=== PATIENT | male | born 1930 | race Hispanic/Latino ===

== ENCOUNTER 2018-03-22 13:50 | Inpatient (IN) | payer MEDICARE, OTHER ==
[~2018-03-22 13:50] MED LIST: ISOVUE-370 76%-LOCM 1 ML ONE
[2018-03-22 15:12] LABS: #Eosinphils 0.1 thou/uL (0.0-0.7); #Lymphocytes 1.1 thou/uL (1.20-3.40); #Monocytes 0.5 thou/uL (0.11-0.59); #Neutrophils 5.7 thou/uL (1.40-6.50); %Basophils 0.4 % (0.0-1.0); %Eosinophils 1.1 % (0.0-10.0); %Lymphocytes 14.6 % (21.0-51.0); %Monocytes 7.3 % (0.0-10.0); %Neutrophils 76.7 % (42.0-75.0); Hemoglobin 13.8 g/dL (14.0-18.0); Mean Corpuscular HGB CONC 34.8 g/dL (32.0-36.0); Mean Corpuscular Hemoglobin 31.4 pg (27.0-31.0); Mean Corpuscular Volume 90.3 fL (78.0-98.0); Mean Platelet Volume 9.2 fL (7.4-10.4); Platelet Count 163 thou/uL (130-400); RBC Distribution Width 12.3 % (11.5-14.5); Red Blood Cell (RBC) Count 4.39 mill/uL (4.70-6.10); White Blood Cell (WBC) Count 7.4 thou/uL (4.8-10.8)
[2018-03-22 15:33] LABS: ALT (SGPT) 160 U/L (8-55); AST (SGOT) 80 U/L (5-34); Alkaline Phosphatase 509 U/L (40-150); Anion Gap 10 mmol/L (10-20); BUN (Urea Nitrogen) 20 mg/dL (8.4-25.7); Calc. Creatinine Clearance 0 mL/min (70-130); Carbon Dioxide 26 mmol/L (23-31); Chloride 108 mmol/L (98-107); Estimated GFR-MDRD 64; Globulin 2.6 g/dL (2.4-3.5); Glucose 203 mg/dL (83-110); Protein, Total 6.6 g/dL (5.8-8.1); Sodium 141 mmol/L (136-145)
[2018-03-22 17:32] LABS: Bilirubin Large (Negative); Blood, Urine Negative (Negative); Clarity CLEAR (Clear); Glucose, Urine (Dipstick) >=1000 mg/dL (Negative); Leukocyte Moderate (Negative); Protein, Urine (Dipstick) 30 mg/dL (Neg-Trace); Specific Gravity, Urine 1.034 (1.002-1.036)
[2018-03-22 17:34] LABS: Bacteria/HPF None Seen HPF (None Seen); Pathc Cast-AUWi Flag 1.88 (0-2.49); Squamous Epithelial 0-3 HPF (0-3); WBC/HPF 21-50 HPF (0-3)
[2018-03-22 17:51] LABS: Nitrite Unable to Interpret (Negative)
[2018-03-22 17:52] LABS: Hyaline Casts/LPF 0-3 HYALINE CAST LPF (0-3 Hyaline); Renal Epithelial 0-3 HPF (0-3); Transitional Epithelial 0-3 HPF (0-3)
--- NOTE | 2018-03-22 18:21 | ULT ---
RIGHT UPPER QUADRANT ABDOMINAL ULTRASOUND: Date: 03/22/18 HISTORY: New onset jaundice. Right upper quadrant abdominal pain. TECHNIQUE: Multiplanar Seymour scale and color Doppler images obtained in a right upper quadrant abdominal ultrasou nd. FINDINGS: The liver is normal in echogenicity without focal lesions or intrahepatic ductal dilatation. Dependen t sludge is seen in the gallbladder without shadowing stones in the gallbladder. The gallbladder wall is upper limits of normal in thickness measuring 3.0 mm. No pericholecystic fluid is seen. The commo n bile duct is enlarged, measuring 9.0 mm. The pancreas could not be visualized. The right kidney is normal in echogenicity without hydronephros is or calculus and measures 8.3 cm in length. IMPRESSION: 1. Gallbladder sludge. 2. Nonspecific enlargement of the common bile duct. POS: [facility]
[2018-03-22] MEDS ORDERED: Potassium Chloride 20 MEQ TAB ONE (19:13)
[2018-03-22] MEDS ORDERED: cefTRIAXone\\ROCEPHIN 2 GM VIAL ONE (19:13)
[2018-03-22 19:18] LABS: INR-International Normal Ratio 1.1; Prothrombin Time 14.5 SEC (12.0-14.7)
--- NOTE | 2018-03-22 19:31 | CT ---
CT ABDOMEN AND PELVIS WITH CONTRAST: HISTORY: New onset jaundice. COMPARISON: Gallbladder ultrasound from 03/22/2018 TECHNIQUE: Multiple contiguous axial images were obtained in a CT of the abdomen and pelvis with contrast. Yvrose nal reformats were performed. FINDINGS: There is central intrahepatic biliary dilatation. There are scattered subcentimeter hypodensities in the liver, which are too small to definitely characterize. The gallbladder is distended. The commo n bile duct is normal in size, measuring 6 mm. There is a 1.7 cm cyst in the left kidney. Hyperplasia of the right adrenal gland is seen. The righ t kidney, left adrenal gland, spleen, and pancreas are unremarkable. No mass is seen in the head of the pancreas. There is a moderate hiatal hernia. The prostate is enlarged. A few scattered diverticula are seen i n the colon. The small bowel and appendix are unremarkable. No abdominal or pelvic lymphadenopathy is seen. Atherosclerotic calcifications are seen in the aort a. Degenerative changes are seen in the spine. The visualized inferior thorax and abdominal wall soft t issues are unremarkable. IMPRESSION: 1. Gallbladder distention. 2. Intrahepatic biliary dilatation is nonspecific. 3. No mass is seen in the pancreatic head. 4. Left renal cyst. 5. Diverticulosis. POS: [facility]
[2018-03-22] MEDS ORDERED: Ondansetron HCl/PF 4 MG/2 ML Vial IVP PRN (20:01)
[2018-03-22] MEDS ORDERED: Pepto Bismol Chew TAB PO PRN (20:01)
[2018-03-22] MEDS ORDERED: Guaifenesin DM 100-10/5 ML UDCUP PO PRN (20:01)
[2018-03-22] MEDS ORDERED: Senokot 8.6 MG TAB PO PRN (20:01)
[2018-03-22] MEDS ORDERED: Bisacodyl 5 MG TAB PO PRN (20:01)
[2018-03-22] MEDS ORDERED: Enoxaparin Sodium 40 MG/0.4 ML SYRINGE SC SCH (21:00)
[2018-03-22] MEDS: Sodium Chloride 0.9% 1,000 ML IV SCH (23:04)
[2018-03-22] MEDS: Famotidine/PF 20 mg/2ml Vial SLOW IVP SCH (23:04)
--- NOTE | 2018-03-22 23:49 | HP ---
CHIEF COMPLAINT: New onset jaundice. HISTORIAN. The patient's daughter, reliable. HISTORY OF PRESENT ILLNESS: This is an 87-year-old male with past medical history of dementia, shamir cardia, prostate cancer status post radiation, hyperlipidemia, hypertension presenting with new onset jaundice, which started the day prior to this admission. Per daughter, the patient has been having some diarrhea since and did notice that the patient started to become very yellow on the mor lulu of the day before this admission. Per daughter, the patient does not have any complaints. She is not complaining of any pain, any nausea or vomiting. The patient feels well. The patient is at h is baseline. REVIEW OF SYSTEMS: Positive for dementia, Alzheimer's type, and jaundice, otherwise as documented in HPI, all systems were reviewed and are negative. PAST MEDICAL HISTORY: Refer to [facility]. PAST SURGICAL HISTORY: Cataract surgery bilaterally, orthopedic surgery of right elbow and prostatec josefa. PSYCHIATRIC HISTORY: The patient has Alzheimer dementia. FAMILY HISTORY: Reviewed and noncontributory to this visit. SOCIAL HISTORY: The patient denies any alcohol use, denies any drug use. Denies any smoking history . ALLERGIES: SULFAS. MEDICATIONS: 1. Procardia 30 mg. 2. Aricept 20 mg. 3. Simvastatin 20 mg. 4. Hytrin 10 mg. 5. Aspirin 81 mg. PHYSICAL EXAMINATION: VITAL SIGNS: Blood pressure 131/68, pulse 61, respiratory rate 18, temperature 98.1, O2 sat is 96 on room air. GENERAL APPEARANCE: The patient is lying in bed, appears not jaundiced, is able to speak in full sen tences. The patient is demented. HEENT: Normocephalic, atraumatic. Pupils are equally round and reactive to light. Extraocular move ments are intact. Patient has scleral icterus. Mucous membranes are moist. NECK: Supple, no JVD, no tracheal deviation. LUNGS: Clear to auscultation bilaterally. No wheezing, no rales, no rhonchi is appreciated. CARDIOVASCULAR: Positive S1, S2, regular rate and rhythm. No murmurs, no gallops, no rubs appreciat ed. ABDOMEN: Obese abdomen, nontender, nondistended. No palpable masses. No peritoneal signs. The pat ient has yellowing of the skin of the abdomen. EXTREMITIES: Upper extremity and lower extremity, 5/5 upper extremity strength and 5/5 lower extremi ty strength with good pulses of the upper and lower extremities bilaterally. NEUROLOGIC: Cranial nerves II-XII grossly intact. No focal neurologic deficits noted. SKIN: Patient is jaundiced all over. Dry, warm and intact. PSYCHIATRIC: The patient is demented, alert and oriented x1. EMERGENCY DEPARTMENT COURSE: The patient received Rocephin 2 grams. The patient received potassium chloride 40 mEq. IMAGING: Ultrasound of the abdomen showed gallbladder sludge, nonspecific enlargement of the common bile duct. Abdomen and pelvis CT showed gallbladder distention, intrahepatic biliary dilatation is n onspecific. No masses seen in the pancreatic head. Left renal cyst, there is diverticulosis. LABORATORY DATA: WBC 7.4, hemoglobin is 13.8, hematocrit is 39.6, RDW is 12.3, platelets 163, neutro phils 76.7%. Sodium 141, potassium is 3.0, chloride is 108, carbon dioxide is 26, anion gap of 10, B UN 20, creatinine 1.09, glucose 203. Total bilirubin is 7.0, AST 80, ALT 160, alkaline phosphatase i s 509. Urine: The patient had large urine bilirubin, moderate leukoesterase. ASSESSMENT AND PLAN: This is an 87-year-old male presenting with: 1. New onset painless jaundice: At this point, right upper quadrant ultrasound has been done, which showed some gallbladder sludge, nonspecific common bile duct distention. CT of the abdomen and pelv is also showed that there is a nonspecific gallbladder dilatation and at this point, patient's alkali ne phosphatase is very high and even though no stone has been seen, the common bile duct at this poin t, we will do MRCP to take a good look at the biliary tree. We have consulted GI. We will follow up with GI's recommendations. We will continue patient on antibiotics and will follow up with morning labs. 2. Electrolyte abnormality: At this point, we will replete all electrolyte abnormalities. 3. Transaminitis: Etiology unclear at this time, but there seemed to be some sludge in the gallblad ab and there is common bile duct dilatation, which is very nonspecific. At this point, we will get MRCP to evaluate the biliary tree. We have GI on consult. We will continue to follow up with [facility] labs and continue to work the patient up. 4. Asymptomatic urinary tract infection. At this point, the patient is already on antibiotics, so t hat we will treat the patient if patient do indeed have a UTI, but the patient does not have any symp toms. 5. History of hypertension. We will continue to monitor the patient and we will treat patient's hyp ertension as needed. 6. Hyperlipidemia. We will continue patient on current management. 7. Alzheimer dementia. We will continue patient on current management and we will start patient on p.o. medications from home. 8. Deep venous thrombosis and GI prophylaxis.
[2018-03-23] MEDS: Piperacillin/Tazobactam 3.375 GM in Sodium Chloride 0.9% 100 ML IVPB SCH ×5 (00:33→23:46)
[2018-03-23 04:49] VITALS: BMI 25.0
[2018-03-23 05:45] LABS: #Eosinphils 0.2 thou/uL (0.0-0.7); #Lymphocytes 1.3 thou/uL (1.20-3.40); #Monocytes 0.5 thou/uL (0.11-0.59); #Neutrophils 4.2 thou/uL (1.40-6.50); %Basophils 0.8 % (0.0-1.0); %Eosinophils 2.5 % (0.0-10.0); %Lymphocytes 20.9 % (21.0-51.0); %Monocytes 8.1 % (0.0-10.0); %Neutrophils 67.7 % (42.0-75.0); Hemoglobin 12.4 g/dL (14.0-18.0); Mean Corpuscular HGB CONC 35.2 g/dL (32.0-36.0); Mean Corpuscular Hemoglobin 31.7 pg (27.0-31.0); Mean Corpuscular Volume 90.1 fL (78.0-98.0); Mean Platelet Volume 9.7 fL (7.4-10.4); Platelet Count 153 thou/uL (130-400); RBC Distribution Width 12.2 % (11.5-14.5); White Blood Cell (WBC) Count 6.2 thou/uL (4.8-10.8)
[2018-03-23 05:52] LABS: Anion Gap 12 mmol/L (10-20); BUN (Urea Nitrogen) 14 mg/dL (8.4-25.7); Calc. Creatinine Clearance 66 mL/min (70-130); Calcium 8.8 mg/dL (7.8-10.44); Carbon Dioxide 23 mmol/L (23-31); Chloride 112 mmol/L (98-107); Estimated GFR-MDRD 86; Glucose 112 mg/dL (83-110); Sodium 144 mmol/L (136-145)
[2018-03-23 05:55] LABS: Potassium 2.7 mmol/L (3.5-5.1)
[2018-03-23] MEDS: Potassium Chloride 20 MEQ in Premix Bag 1 BAG IVPB SCH ×3 (07:00→20:26)
[2018-03-23] MEDS ORDERED: hydrALAZINE 20 MG/ML VIAL SLOW IVP PRN (10:51)
--- NOTE | 2018-03-23 10:53 | PDOC.PN ---
- Subjective Encounter Start Date: 03/23/18 Encounter Start Time: 10:52 Mr. Geller was seen today in follow-up of Jaundice, and cholestasis. He does not hve any complaints. He denies abdominal pain or nausea. - Objective Resuscitation Status: Resuscitation Status DNR:Do Not Resuscitate MAR Reviewed: Yes Vital Signs & Weight: Weight Weight 164 lb 15.903 oz Result Diagrams: 03/23/18 05:01 03/23/18 05:01 Phys Exam - Physical Examination HEENT: PERRLA, sclera anicteric Respiratory: no wheezing, no rales, no rhonchi, clear to auscultation bilateral Cardiovascular: RRR, no significant murmur, no rub no gallop Gastrointestinal: soft, non-tender, no distention, positive bowel sounds Musculoskeletal: no edema Skin: normal turgor Dx/Plan (1) Acute cholestatic jaundice syndrome Code(s): K83.8 - OTHER SPECIFIED DISEASES OF BILIARY TRACT Status: Acute (2) Hypokalemia Code(s): E87.6 - HYPOKALEMIA Status: Acute (3) UTI (urinary tract infection) Status: Acute (4) Dementia Code(s): F03.90 - UNSPECIFIED DEMENTIA WITHOUT BEHAVIORAL DISTURBANCE Status: Chronic (5) HTN (hypertension) Code(s): I10 - ESSENTIAL (PRIMARY) HYPERTENSION Status: Chronic - Plan * Cholestatic Juandice- MRCP has been ordered, and GI has been consulted * HTN- blood pressure is elevated, but he is NPO- will add Hydralazine as needed * Hypokalemia- replace * UTI vs. Asymptomatic Bacteriuria- continue Zosyn * Dementia- stable advanced- he is oriented only to person, and at times does not recognize family.
[2018-03-23] MEDS: Famotidine/PF 20 mg/2ml Vial SLOW IVP SCH ×2 (11:38→20:24)
--- NOTE | 2018-03-23 11:45 | CON ---
DATE OF CONSULTATION: 03/23/2018 REFERRING PHYSICIAN: Dr. Eren Llanes, [facility] [place] Hospitalist. REASON FOR CONSULTATION: Abnormal LFTs, painless jaundice. HISTORY OF PRESENT ILLNESS: Mr. Alvin Geller is a very pleasant 87-year-old male bro ught to the hospital by his family because of painless jaundice. The patient does see Dr. Ganga cisneros who is his primary care doctor. The patient's family noticed him to be jaundiced this past Sun day. He was seen by Dr. Mcdowell and was referred to the ER. In the ER he was found to have abnormal LFTs and also subsequent evaluation included abdominal sonogram and CAT scan showed dilation of the intrahepatic ducts. Surprisingly, the distal common bile is nondilated. There is no definite pancre atic mass seen. The patient has good appetite. There is nausea or vomiting. No abdominal pain. Ur ine is yellowish in color. He has good appetite and eating well, but for the painless jaundice and s ome itching over the last couple of days, he has no GI symptoms. He has not seen a gastroenterologis t in the past. His bowel movements are regular. No hematochezia, no melena. He has no other known history. ALLERGIES: SULFA. MEDICAL ILLNESSES: 1. Hypertension. 2. Hyperlipidemia. 3. Dementia. 4. History of slow heart rate, he was seen by Dr. Miller in the past. MEDICATIONS: 1. Procardia 30 once a day. 2. Aricept 20 once a day. 3. Simvastatin 20 once a day. 4. ____ 10 mg once a day. 5. Aspirin 81 mg a day. SURGERIES: 1. Cataract surgery, both sides. 2. Right elbow surgery for injury. 3. Prostatectomy for prostate cancer by Dr. Wilber Vallejo 5 years ago. No other surgeries. FAMILY HISTORY: There is no family history of stroke, heart disease or cancer. REVIEW OF SYSTEMS: Limited to the fact that he has dementia and he is forgetful. However, denies any specific symptom. CONSTITUTIONAL: No history of fever, no weight loss. He does ambulate with a cane. RESPIRATORY: No history of chronic cough, hemoptysis or dyspnea. CARDIOVASCULAR: No chest pain, no palpitation, no orthopnea or PND. GASTROINTESTINAL: Unremarkable. GENITOURINARY: Unremarkable. PHYSICAL EXAMINATION: GENERAL: Revealed a very pleasant, elderly male who appears comfortable. He is awake and communicative. However, most of the history was obtained from the patient's daughter, Kirsten, who is in the room. He is jaundiced. VITAL SIGNS: He is afebrile. Pulse is 70. At the present time, blood pressure is 161/66. NECK: Supple. No adenitis or thyromegaly noted. CARDIOVASCULAR: First and second heart sounds normal. He has a faint systolic murmur. LUNGS: Clear to auscultation. ABDOMEN: Soft. Abdomen is nondistended. Abdomen is nontender. There is no organomegaly or masses. Bowel sounds normal. EXTREMITIES: No edema. LABORATORY DATA: From today, WBC 6200, hemoglobin 12.4, hematocrit 30.1, MCV 90.1, platelet count 15 8,000, polymorphs 67, lymphocytes 20, monocytes 8. Serum chemistries; potassium 2.7 today, chloride 112, bicarbonate 23. Sodium 144, BUN is 14, creatinine 0.84, calcium 8.8, bilirubin 8.7, direct david irubin 4.4, AST 80, ALT 160, alkaline phosphatase 519. An abdominal sonogram done shows dilation of the intrahepatic ducts and gallbladder sludge. The comm on bile duct measures 9 mm. An abdominal CAT scan done shows again no pancreatic mass, dilation of t he intrahepatic ducts. The common bile duct, CAT scan shows less than 6 mm. CLINICAL IMPRESSION: 1. This is an 87-year-old male with painless jaundice. There is a possibility of mal ignancy. Abdominal sonogram CAT scan showed no gallstones. His laboratory shows evidence of cholest asis, alkaline phosphatase of 519, bilirubin 7 mg. AST, ALT 116, AST 80. 2. Hypertension. 3. Hyperlipidemia. 4. Dementia. 5. Prostate cancer, status post prostatectomy. 6. Hypokalemia. RECOMMENDATIONS: 1. Correction of hypokalemia. 2. Diet as tolerated. 3. We will plan for ERCP tomorrow. 4. I did meet Kirsten, his daughter, and explained about the procedure in detail. The risks like pancr eatitis, perforation, sepsis and bleeding explained. The family fully understood the procedure and a greeable for the procedure. I will plan for ERCP tomorrow. In the meantime, would recommend correct ion of hypokalemia before the surgical procedure.
[2018-03-23] MEDS: Potassium Chloride 20 MEQ TAB PO SCH (17:57)
[2018-03-23] MEDS: Sodium Chloride 0.9% 1,000 ML IV SCH ×2 (17:57→20:25)
[2018-03-24 05:31] LABS: Anion Gap 14 mmol/L (10-20); BUN (Urea Nitrogen) 14 mg/dL (8.4-25.7); Calc. Creatinine Clearance 67 mL/min (70-130); Calcium 8.7 mg/dL (7.8-10.44); Carbon Dioxide 20 mmol/L (23-31); Chloride 111 mmol/L (98-107); Estimated GFR-MDRD 89; Glucose 130 mg/dL (83-110); Sodium 142 mmol/L (136-145)
[2018-03-24] MEDS: Famotidine/PF 20 mg/2ml Vial SLOW IVP SCH ×2 (07:55→21:57)
[2018-03-24] MEDS: Piperacillin/Tazobactam 3.375 GM in Sodium Chloride 0.9% 100 ML IVPB SCH ×3 (08:12→21:56)
[2018-03-24] MEDS: Potassium Chloride 20 MEQ TAB PO SCH ×2 (08:15→17:16)
[2018-03-24] MEDS ORDERED: Indomethacin 50 MG SUPP ONE (11:31)
[2018-03-24] MEDS ORDERED: Iothalamate Meglumine 60% 50 ML VIAL FS ONE ×2 (11:31→13:43)
[2018-03-24] MEDS ORDERED: Fentanyl 100 MCG/2 ML VIAL ONE (11:53)
--- NOTE | 2018-03-24 13:45 | RAD ---
ERCP: Date: 03-24-18 History: Enlarged common bile duct. FINDINGS/IMPRESSION: Three intraoperative fluoroscopic images of the right upper quadrant are submitted from ERCP. Images demonstrate accumulation of the common duct with opacification of the common duct and intrahepatic bi le duct which do appear mildly dilated on this exam. The final image demonstrates a stent within the common duct with distal portion of the stent in the expected location of a loop of bowel, although co ntrast in the small bowel is not visualized. Correlation with intraoperative findings is recommended. POS: [facility]
[2018-03-24] MEDS ORDERED: Promethazine HCl 25 MG/ML VIAL IM PRN (13:58)
[2018-03-24] MEDS ORDERED: Ondansetron HCl/PF 4 MG/2 ML Vial IVP PRN (13:58)
[2018-03-24] MEDS ORDERED: Promethazine HCl 25 MG/ML VIAL SLOW IVP PRN (13:58)
[2018-03-24] MEDS ORDERED: Magnesium 2 GM/NS 0.9% 100 ML 2 GM in Premix Bag 1 BAG IVPB SCH (17:15)
--- NOTE | 2018-03-24 17:38 | PDOC.PN ---
- Subjective Encounter Start Date: 03/24/18 Encounter Start Time: 17:37 Mr. Geller was seen today in follow-up of painless juandice. He is a bit drowsy, but does not have any complaints. - Objective Resuscitation Status: Resuscitation Status DNR:Do Not Resuscitate MAR Reviewed: Yes Vital Signs & Weight: Vital Signs (12 hours) Temp Pulse Resp BP BP Pulse Ox 03/24/18 15:37 56 L 220/86 H 03/24/18 08:23 98.4 F 48 L 16 174/73 H 97 Weight Weight 164 lb 15.903 oz I&O: 03/23/18 03/24/18 03/25/18 06:59 06:59 06:59 Intake Total 1500 Balance 1500 Result Diagrams: 03/23/18 05:01 03/24/18 04:41 Phys Exam - Physical Examination HEENT: PERRLA Icteric sclera Respiratory: no wheezing, no rales, no rhonchi, clear to auscultation bilateral Cardiovascular: RRR, no significant murmur, no rub Gastrointestinal: soft, non-tender, no distention, positive bowel sounds Musculoskeletal: no edema Dx/Plan (1) Acute cholestatic jaundice syndrome Code(s): K83.8 - OTHER SPECIFIED DISEASES OF BILIARY TRACT Status: Acute (2) Hypokalemia Code(s): E87.6 - HYPOKALEMIA Status: Acute (3) UTI (urinary tract infection) Status: Acute (4) Dementia Code(s): F03.90 - UNSPECIFIED DEMENTIA WITHOUT BEHAVIORAL DISTURBANCE Status: Chronic (5) HTN (hypertension) Code(s): I10 - ESSENTIAL (PRIMARY) HYPERTENSION Status: Chronic (6) Hypomagnesemia Code(s): E83.42 - HYPOMAGNESEMIA Status: Acute - Plan * Acute cholestatic heath- Patient had ERCP, removal of common duct stones, and placement of a STENT * Await further recommendations from Gastroenterology * HTN- blood pressure is not controlled- will re-start Lisinopril as directed * Hypokalemia- replace * Hypomagnesemia- will give IV Magnesium * Dementia- re-start Aricept .
[2018-03-24] MEDS ORDERED: Atorvastatin Calcium 10 MG TAB PO SCH (21:00)
--- NOTE | 2018-03-24 21:33 | PRG ---
DATE OF SERVICE: 03/24/2018 HISTORY OF PRESENT ILLNESS: Alvin Geller is an 87-year-old male hospitalized with pa inless jaundice. The liver function tests are cholestatic. An abdominal sonogram showed some dilati on of the common bile duct. No definite pancreatic mass seen. An ERCP and revealed no papillary abn ormality. There is no new pancreatic or abnormal mass seen in the duodenum. He underwent ERCP, chris pb of common bile duct stone and had a stent placement. He is on clear liquid diet. He appears brittney y comfortable. Denies abdominal pain and nausea. He is tolerating clear liquid diet. OBJECTIVE: VITAL SIGNS: Stable. Pulse is 58, blood pressure is 155/70. Afebrile. CARDIOVASCULAR: S1 and S2. LUNGS: Within normal limits. ABDOMEN: Soft to palpate. ABDOMEN: Nontender. No murmur. RECOMMENDATION: 1. Clear liquid diet tonight. 2. Advance to a regular diet tomorrow. If he has no symptoms, no abdominal pain or any other proble m, may consider discharge home tomorrow.
[2018-03-25 05:27] LABS: ALT (SGPT) 168 U/L (8-55); AST (SGOT) 104 U/L (5-34); Albumin 3.5 g/dL (3.4-4.8); Alkaline Phosphatase 419 U/L (40-150); Bilirubin, Direct 2.8 mg/dL (0.1-0.3); Bilirubin, Total 4.9 mg/dL (0.2-1.2); Protein, Total 5.8 g/dL (5.8-8.1)
[2018-03-25] MEDS ORDERED: hydrALAZINE 10 MG TAB PO PRN (06:16)
[2018-03-25] MEDS: Piperacillin/Tazobactam 3.375 GM in Sodium Chloride 0.9% 100 ML IVPB SCH ×3 (06:17→15:27)
[2018-03-25] MEDS: Potassium Chloride 20 MEQ TAB PO SCH (08:36)
[2018-03-25] MEDS: Famotidine/PF 20 mg/2ml Vial SLOW IVP SCH (08:37)
[2018-03-25] MEDS ORDERED: Donepezil HCl 10 MG TAB PO SCH (09:00)
[2018-03-25] MEDS ORDERED: Multivit, Therapeutic 1 TAB PO SCH (09:00)
[2018-03-25] MEDS ORDERED: Terazosin HCl 5 MG CAP PO SCH (09:00)
[2018-03-25] MEDS ORDERED: Amlodipine 5 MG TAB PO PRN (09:00)
--- NOTE | 2018-03-25 14:53 | PDOC.PN ---
- Subjective Encounter Start Date: 03/25/18 Encounter Start Time: 14:50 Mr. Geller was seen today in follow-up. He is a bit confused this afternoon. He does not have any specific complaints. - Objective Resuscitation Status: Resuscitation Status DNR:Do Not Resuscitate MAR Reviewed: Yes Vital Signs & Weight: Vital Signs (12 hours) Temp Pulse Resp BP BP BP Pulse Ox 03/25/18 10:57 97.5 F L 78 18 78/34 L 94 L 03/25/18 07:31 98.6 F 56 L 18 151/60 H 94 L 03/25/18 06:22 56 L 180/66 H 03/25/18 06:11 97.4 F L 56 L 14 180/66 H 97 Weight Weight 164 lb 15.903 oz I&O: 03/24/18 03/25/18 03/26/18 06:59 06:59 06:59 Intake Total 1500 1630 Balance 1500 1630 Result Diagrams: 03/23/18 05:01 03/24/18 04:41 Phys Exam - Physical Examination HEENT: PERRLA Respiratory: no wheezing, no rales, no rhonchi, clear to auscultation bilateral Cardiovascular: RRR, no significant murmur, no rub Gastrointestinal: soft, non-tender, no distention, positive bowel sounds Musculoskeletal: no edema Dx/Plan (1) Acute cholestatic jaundice syndrome Code(s): K83.8 - OTHER SPECIFIED DISEASES OF BILIARY TRACT Status: Acute (2) Hypokalemia Code(s): E87.6 - HYPOKALEMIA Status: Acute (3) UTI (urinary tract infection) Status: Acute (4) Dementia Code(s): F03.90 - UNSPECIFIED DEMENTIA WITHOUT BEHAVIORAL DISTURBANCE Status: Chronic (5) HTN (hypertension) Code(s): I10 - ESSENTIAL (PRIMARY) HYPERTENSION Status: Chronic (6) Hypomagnesemia Code(s): E83.42 - HYPOMAGNESEMIA Status: Acute - Plan * Obstructive Juandice- his bilirubin is trending down * He has not had any abdominal pain or fever overnight * He is stable for discharge home.
[2018-03-25 14:58] VITALS: BP 129/58; TEMP 97.9
[2018-03-25] MEDS: Sodium Chloride 0.9% 1,000 ML IV SCH (15:27)
--- NOTE | 2018-03-25 17:29 | OP ---
OPERATIVE PROCEDURES: 1. Endoscopic retrograde cholangiopancreatography with papillotomy. 2. Balloon sweep of the bile duct with common bile duct stone extraction and sludge. 3. Status post placement of a biliary stent size 9 x 11. PREOPERATIVE DIAGNOSES: 1. Abnormal LFTs. 2. Obstructive jaundice as she has dilation of the common bile duct, but no pancreatic mass seen. POSTOPERATIVE DIAGNOSES: 1. Dilated common bile duct with filling defects in the distal CBD. 2. The papilla appeared normal and no papillary mass seen. 3. The pancreatic duct not visualized. PROCEDURE IN DETAIL: The patient was placed on his back and was intubated by Anesthesia Department. The patient was transferred to the fluoroscopy table. The patient was turned on his left lateral po sition and placed on his stomach. A bite block was placed. A [employer] video duodenoscope under direct vision was passed down the oropharynx, past the GE junction, into the stomach and subsequently into the descending duodenum. The papilla was identified. The papilla was actually very flat and small. There is no biliary drainage noted. The papilla was cannulated over a guidewire. The guidewire see ms to be going to the pancreatic duct contrast injected and does appear to show the proximal p ancreatic duct, but did not fill up the entire duct. The papillotome was removed. Subsequently, ove r the guidewire, the CBD was . Injection of the contrast does show dilation of common bile jose cruz t, and also some filling defects in the distal CBD. The quality of the image was very poor. Althoug h numerous adjustments were made to get a better look at the fluoroscopy. The exam was somewhat limi rick. papillotomy at 12 o'clock position. A generous papillotomy to 1.5 cm sized cut was made without any difficulty. Following the papillotomy, there was brisk drainage of bile which was dark black bile and also some sludge came out. The papillotome was changed to a biliary balloon size 9-12 mm. It was inside 12 mm and brought out three times. There were couple of stones extracted and als o dark bile was draining freely with some sludge. Because of the poor quality of the prep related t o place a biliary stent. The papillotome was exchanged to a biliary balloon and on over the guide wi re the duct was sucked three times. The balloon was removed. The catheter was advanced over the kain dewire into the common bile duct and over the catheter biliary stent size 9 x 11 mm placed int o the bile duct and there was good drainage of bile noted. No complications noted. The stomach was decompressed and scope was removed. RECOMMENDATIONS: 1. Clear liquid diet today. 2. Repeat LFTs tomorrow. 3. If he has no untoward side effects from the ERCP, consider discharge home hopefully tomorrow. Th e plan is to bring the patient back in 4 weeks to remove the stent and possibly consider endosonograp hy as an outpatient. This was conveyed to the patient's daughter Kirsten.
--- NOTE | 2018-03-26 02:08 | DIS ---
DATE OF ADMISSION: 03/22/2018 DATE OF DISCHARGE: 03/25/2018 PRIMARY CARE PHYSICIAN: Dr. Ganga Mcdowell. DISCHARGE DIAGNOSES: 1. Acute cholestatic jaundice. 2. Hypokalemia. 3. Dementia. DISCHARGE MEDICATIONS: Include Theragran-M 1 tablet daily, vitamin B12 of 1000 mcg daily, amlodipine 2.5 mg as needed, Hytrin 10 mg daily, simvastatin 20 mg at bedtime, and Aricept 20 mg daily. CODE STATUS: DNR. ALLERGIES: SULFACETAMIDE. PROCEDURES DONE DURING THE ADMISSION: The patient had an abdominal ultrasound, in which there were s ome gallbladder sludge, there were some nonspecific enlargement of the common bile duct. There is a CT scan of the abdomen and pelvis, in which there were some evidence of gallbladder distention, intra biliary dilatation was nonspecific. There was no mass seen at the pancreatic head. There was a left renal cyst and diverticulosis. The patient had an ERCP with stent placement. CODE STATUS: DNR. HOSPITAL COURSE: Mr. Geller is a pleasant 87-year-old gentleman who presented to the emergency room v ia being brought in by family after it was noted that he was jaundiced. He was seen in the ER, and i t was noted that his bilirubin was elevated at 7.0 and that was a total bilirubin. He had an elevate d alkaline phosphatase at 509. CT scan of the abdomen showed some mild gallbladder sludge. He was a lso found to be hypokalemic with a potassium of 2.7. This was replaced. He was originally placed on antibiotics due to concern for urinary tract infection; however, this appears to be more asymptomati c bacteriuria. Stool studies were also done, which were negative for C. difficile, Campylobacter, an d Shiga toxin. He was seen by Gastroenterology and underwent an ERCP. There was a removal of severa l small common duct stones and a stent was placed. He is to follow up with Dr. Mason as instruct ed. After the procedure, there was no fever or abdominal pain. He did have some worsening of his de mentia right at the time of discharge, which hopefully should improve after he is back in more [facility] surroundings. He is therefore discharged home and to have close outpatient followup.
== END 2018-03-25 16:00 | disposition home or self-care (01) | DRG 445 ==
LOC: ERS 13:50 → SURG B 19:16
PROVIDERS: ADMIT Internal Medicine; ATTEND Internal Medicine
PROC: 0F798DZ Dilation of Common Bile Duct with Intraluminal Device, Via Natural or Artificial Opening Endoscopic (ICD-10-PCS; principal; 2018-03-23)
DX: K83.1 Obstruction of bile duct (principal); N39.0 Urinary tract infection, site not specified; G30.9 Alzheimer's disease, unspecified; F02.80 Dementia in other diseases classified elsewhere, unspecified severity, without behavioral disturbance, psychotic disturbance, mood disturbance, and anxiety; Z85.46 Personal history of malignant neoplasm of prostate; Z92.3 Personal history of irradiation; E78.5 Hyperlipidemia, unspecified; I10 Essential (primary) hypertension; Z88.2 Allergy status to sulfonamides; Z79.82 Long term (current) use of aspirin; E87.6 Hypokalemia; Z66 Do not resuscitate; N28.1 Cyst of kidney, acquired; K57.90 Diverticulosis of intestine, part unspecified, without perforation or abscess without bleeding; Z90.79 Acquired absence of other genital organ(s); E83.42 Hypomagnesemia
CPT/HCPCS: 36415; 74177; 74330; 76705; 80048; 80053; 80076; 81003; 81015; 82248; 83010; 83615; 83690; 83735; 85025; 85610; 87040; 87045; 87046; 87086; 87324; 87449; 87899; 96365; A4216; J0360; J0696; J1610; J1650; J2543; J3010; J3475; J3480; J7050; Q9961; S0028

== ENCOUNTER 2018-04-28 06:12 | Day surgery (SDC) | payer MEDICARE, OTHER ==
--- NOTE | 2018-04-27 07:27 | HP ---
SHORT STAY HISTORY AND PHYSICAL DATE OF ADMISSION: 04/29/2018 HISTORY OF PRESENT ILLNESS: This is an 87-year-old [place] male hospitalized with painless jaundice. He had a dilation of common bile duct with no definite pancreatic mass. He had no nausea or vomiting. The patient underwent ERCP with papillotomy and stone extraction. There were multiple stones removed from the bile duct. At the time of the exam was suboptimal as the pictures on the fluoroscopy was not good quality.. The patient underwent a stent placement done because of the multiple gallstones removed. The patient did very well since discharge. His LFTs are back to normal. He has no abdominal pain, nausea or vomiting. The patient comes for the ERCP, stent removal. ALLERGIES: SULFA. MEDICAL ILLNESSES: 1. Hyperlipidemia. 2. Prostate hypertrophy. 3. Mild dementia. PHYSICAL EXAMINATION: GENERAL: Appears comfortable. VITAL SIGNS: Pulse is 70, blood pressure 130/80. HEENT: Conjunctivae clear. CARDIOVASCULAR SYSTEM: First and second heart sounds normal. LUNGS: Clear to auscultation. ABDOMEN: Soft to palpate. No organomegaly. No tenderness. No masses. ADMITTING DIAGNOSES: 1. Obstructive jaundice, painless. 2. Common bile duct stone removal with stent placement. PLAN: ERCP and stent removal. PAVEL
[2018-04-28] MEDS ORDERED: Midazolam HCl 2 mg/2 ml Vial ONE (06:25)
[2018-04-28] MEDS ORDERED: Fentanyl 100 MCG/2 ML VIAL ONE (06:25)
[2018-04-28] MEDS ORDERED: Iothalamate Meglumine 60% 50 ML VIAL FS ONE (07:10)
--- NOTE | 2018-04-28 10:35 | RAD ---
SINGLE VIEW RETROGRADE ERCP: Indication: Abdominal pain. Comparison: 03-24-18 FINDINGS: The submitted image demonstrates removal of a previously seen biliary drain. There is retrograde opac ification of the common bowel duct, hepatic duct, and intrahepatic biliary ducts. No definite focal f illing defect or extravasation is noted. IMPRESSION: 1. No focal filling defect evident. 2. Interval removal of the previously seen biliary drain. POS: [facility]
--- NOTE | 2018-04-28 14:25 | OP ---
DATE OF PROCEDURE: 04/28/2018 PREOPERATIVE DIAGNOSIS: Common bile duct stone, status post biliary stent placement a month ago. POSTOPERATIVE DIAGNOSES: No filling defect seen and the bile duct empties properly, although bile duct could not be completely filled up by almost 60 mL of contrast. He has balloon occlusion of the common bile duct but the contrast keeps leaking out, indicated previous large sphincterotomy. PROCEDURE IN DETAIL: The patient was intubated and was given sedation by Anesthesia Department. The patient was transferred to the fluoroscopy table. The patient was placed on the left lateral position and was turned on his stomach. A bite block was placed. A [email or web address] video duodenoscope under direct vision was passed down the oropharynx, past GE junction, into the stomach. The patient has J shaped stomach. The patient had hernia . The pyloric opening was somewhat difficult to locate, it is almost like he has a volvulus. I was able to get the scope into the descending duodenum and the previously placed bile duct was draining good. The stent was removed with a polypectomy snare. Subsequently, the scope was advanced back into the stomach. 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 Finally , I was able to get to the descending duodenum. There was good bilious drainage noted. The papilla was cannulated over the guidewire into the common bile duct. Injection of the contrast shows duct to be mildly dilated, but no definite filling defect seen; however, the contrast kept leaking out and it was difficult to fill up the common bile duct. For the above reason, a decision was made to do balloon sweep of the bile duct with size 9-12 mm. The balloon was inflated, the contrast was injected. Again, the contrast kept leaking out. The balloon was inflated x3 and the balloon was _brought out easily. There was good emptying of the common bile duct. The stomach was decompressed and the scope removed. DISCHARGE PLAN: This is an 87-year-old male with previous ERCP with papillotomy and stent placement and also stone extraction. The patient underwent EGD and a balloon sweep of the bile duct. There were no stone extractions and also the bile duct emptied very promptly. The patient is being discharged. DISCHARGE INSTRUCTIONS: 1. The patient was advised to call me with abdominal pain, fever, nausea, and vomiting. 2. In the absence of any symptoms, can come back to me in 2 weeks. We will plan to do endosonography in the near future. PAVEL
--- NOTE | 2018-04-29 08:13 | EKG ---
Test Reason : PREOP Blood Pressure : / mmHG Vent. Rate : 049 BPM Atrial Rate : 049 BPM P-R Int : 184 ms QRS Dur : 124 ms QT Int : 532 ms P-R-T Axes : 043 -24 051 degrees QTc Int : 480 ms Sinus bradycardia RSR' or QR pattern in V1 suggests right ventricular conduction delay Left ventricular hypertrophy with QRS widening Cannot rule out Anteroseptal infarct (cited on or before 21-MAY-2004)(Doubtful) Abnormal ECG When compared with ECG of 18-DEC-2016 10:37, Questionable change in initial forces of Anteroseptal leads Confirmed by KANDY BRANDT ([id number]) on 04/29/2018 8:12:29 AM Referred By: JAUN Confirmed By:KANDY BRANDT
== END 2018-04-28 10:45 | disposition home or self-care (01) ==
LOC: SDC 06:12
PROVIDERS: ATTEND Internal Medicine Gastroenterology
PROC: 0FPB8DZ Removal of Intraluminal Device from Hepatobiliary Duct, Via Natural or Artificial Opening Endoscopic (ICD-10-PCS; principal; 2018-04-28)
DX: K83.1 Obstruction of bile duct (principal); K46.9 Unspecified abdominal hernia without obstruction or gangrene; K31.89 Other diseases of stomach and duodenum; E78.5 Hyperlipidemia, unspecified; N40.0 Benign prostatic hyperplasia without lower urinary tract symptoms; F03.90 Unspecified dementia, unspecified severity, without behavioral disturbance, psychotic disturbance, mood disturbance, and anxiety; Z79.899 Other long term (current) drug therapy; Z88.2 Allergy status to sulfonamides; Z98.890 Other specified postprocedural states
CPT/HCPCS: 74330; 93005; 93010; J2250; J3010; Q9961

== ENCOUNTER 2018-06-28 21:30 | Inpatient (IN) | payer MEDICARE, OTHER ==
[2018-06-28 22:14] LABS: #Lymphocytes 0.8 thou/uL (1.20-3.40); #Monocytes 0.6 thou/uL (0.11-0.59); #Neutrophils 9.6 thou/uL (1.40-6.50); %Basophils 0.1 % (0.0-1.0); %Eosinophils 0.3 % (0.0-10.0); %Lymphocytes 6.8 % (21.0-51.0); %Monocytes 5.8 % (0.0-10.0); Hemoglobin 13.2 g/dL (14.0-18.0); Mean Corpuscular Hemoglobin 30.5 pg (27.0-31.0); Mean Corpuscular Volume 89.8 fL (78.0-98.0); Mean Platelet Volume 9.6 fL (7.4-10.4); Platelet Count 105 thou/uL (130-400); RBC Distribution Width 11.6 % (11.5-14.5); Red Blood Cell (RBC) Count 4.34 mill/uL (4.70-6.10)
[2018-06-28 22:19] LABS: ALT (SGPT) 170 U/L (8-55); AST (SGOT) 71 U/L (5-34); Albumin 3.6 g/dL (3.4-4.8); Alkaline Phosphatase 173 U/L (40-150); Anion Gap 12 mmol/L (10-20); BUN (Urea Nitrogen) 36 mg/dL (8.4-25.7); Bilirubin, Total 1.5 mg/dL (0.2-1.2); CK (CPK) 187 U/L (30-200); Calc. Creatinine Clearance 0 mL/min (70-130); Calcium 9.2 mg/dL (7.8-10.44); Carbon Dioxide 25 mmol/L (23-31); Chloride 100 mmol/L (98-107); Estimated GFR-MDRD 44; Globulin 2.9 g/dL (2.4-3.5); Glucose 361 mg/dL (83-110); Potassium 3.9 mmol/L (3.5-5.1); Protein, Total 6.5 g/dL (5.8-8.1); Sodium 133 mmol/L (136-145)
--- NOTE | 2018-06-28 22:25 | RAD ---
PORTABLE CHEST: 06/28/2018 PROVIDED CLINICAL HISTORY: Weakness. COMPARISON: Examination performed earlier on the same date. FINDINGS: The cardiac silhouette appears prominent, on the basis of the portable technique. Subsegmental atele ctatic changes are seen at the lung bases. There is no focal consolidation, pleural fluid, or pneumo thorax apparent. IMPRESSION: No evidence for an acute cardiopulmonary process. POS: [facility]
[2018-06-28 22:41] LABS: CKMB 1.4 ng/mL (0-6.6)
[2018-06-29] MEDS ORDERED: Piperacillin/Tazobactam 4.5 GM VIAL ONE
--- NOTE | 2018-06-29 00:02 | ULT ---
RIGHT UPPER QUADRANT ULTRASOUND: 06/28/2018 PROVIDED CLINICAL HISTORY: Elevated LFTs. COMPARISON: 03/22/2018 FINDINGS: Examination is limited by overlying bowel gas. The left hepatic lobe and the pancreas are obscured. The visualized portions of the liver demonstrate no evidence for mass or intrahepatic biliary ductal dilatation. The gallbladder demonstrates no stones, wall thickening, or pericholecystic fluid. The common duct measures about 7 mm. The right kidney demonstrates no hydronephrosis or mass. IMPRESSION: Nonspecific mild prominence of the common duct. Correlate with laboratory values. The common duct a ppears smaller than on the comparison study of 03/22/2018, at which time it measured 9 mm. POS: [facility]
[2018-06-29] MEDS ORDERED: Acetaminophen 500 MG TAB ONE (00:08)
[2018-06-29 00:09] LABS: Bilirubin Negative (Negative); Blood, Urine Small (Negative); Clarity CLEAR (Clear); Glucose, Urine (Dipstick) >=1000 mg/dL (Negative); Leukocyte Negative (Negative); Nitrite Negative (Negative); Protein, Urine (Dipstick) 30 mg/dL (Neg-Trace); Specific Gravity, Urine 1.031 (1.002-1.036)
[2018-06-29 00:12] LABS: Bacteria/HPF None Seen HPF (None Seen); Hyaline Casts/LPF 4-6 HYALINE CAST LPF (0-3 Hyaline); Pathc Cast-AUWi Flag 0.58 (0-2.49); RBC/HPF 0-3 HPF (0-3); Squamous Epithelial 0-3 HPF (0-3); WBC/HPF 0-3 HPF (0-3)
[2018-06-29 00:16] LABS: Oval Fat Bodies/HPF None Seen HPF (None Seen); Renal Epithelial 0-3 HPF (0-3); Sperm/HPF None Seen HPF (None Seen); Transitional Epithelial NONE SEEN HPF (0-3); Trichomonas/HPF None Seen HPF (None Seen); Yeast-All Forms None Seen HPF (None Seen)
[2018-06-29] MEDS ORDERED: Ondansetron PF 4 MG/2 ML Vial IVP PRN (00:43)
[2018-06-29] MEDS ORDERED: Senokot S 8.6-50 MG TAB PO PRN (00:43)
[2018-06-29] MEDS ORDERED: Bisacodyl 5 MG TAB PO PRN (00:43)
[2018-06-29] MEDS ORDERED: Sodium Chloride 0.9% 1,000 ML IV SCH (00:45)
[2018-06-29 01:33] LABS: Troponin I 0.042 ng/mL (< 0.028)
[2018-06-29 01:36] VITALS: BMI 23.6
[2018-06-29] MEDS ORDERED: HumaLOG 300 UNITS/3 ML VIAL SC PRN ×2 (05:09)
[2018-06-29] MEDS ORDERED: Dextrose 5% in Water 1,000 ML IV PRN (05:09)
[2018-06-29] MEDS ORDERED: Dextrose 50% Abboject 50 ML SYRINGE SLOW IVP PRN (05:09)
[2018-06-29] MEDS ORDERED: Piperacillin/Tazobactam 2.25 GM in Sodium Chloride 0.9% 100 ML IVPB SCH (06:00)
[2018-06-29 06:25] LABS: #Lymphocytes 0.4 thou/uL (1.20-3.40); #Monocytes 0.7 thou/uL (0.11-0.59); %Basophils 0.2 % (0.0-1.0); %Eosinophils 0.3 % (0.0-10.0); %Lymphocytes 4.8 % (21.0-51.0); %Monocytes 7.3 % (0.0-10.0); %Neutrophils 87.4 % (42.0-75.0); Mean Corpuscular HGB CONC 34.3 g/dL (32.0-36.0); Mean Corpuscular Volume 90.4 fL (78.0-98.0); Mean Platelet Volume 9.9 fL (7.4-10.4); Platelet Count 84 thou/uL (130-400); RBC Distribution Width 11.5 % (11.5-14.5); Red Blood Cell (RBC) Count 3.87 mill/uL (4.70-6.10); White Blood Cell (WBC) Count 9.1 thou/uL (4.8-10.8)
[2018-06-29 06:41] LABS: Albumin 3.1 g/dL (3.4-4.8); Anion Gap 12 mmol/L (10-20); BUN (Urea Nitrogen) 35 mg/dL (8.4-25.7); BUN/Creatinine Ratio 25.18; Calc. Creatinine Clearance 37 mL/min (70-130); Calcium 8.5 mg/dL (7.8-10.44); Carbon Dioxide 23 mmol/L (23-31); Chloride 104 mmol/L (98-107); Estimated GFR-MDRD 48; Glucose 275 mg/dL (83-110); Phosphorus 2.3 mg/dL (2.3-4.7); Potassium 3.3 mmol/L (3.5-5.1); Sodium 136 mmol/L (136-145)
[2018-06-29 06:46] LABS: Troponin I 0.038 ng/mL (< 0.028)
[2018-06-29 08:42] LABS: ALT (SGPT) 132 U/L (8-55); AST (SGOT) 51 U/L (5-34); Albumin 3.1 g/dL (3.4-4.8); Alkaline Phosphatase 149 U/L (40-150); Bilirubin, Direct 0.7 mg/dL (0.1-0.3); Bilirubin, Total 1.5 mg/dL (0.2-1.2); CRP (Inflammatory) 17.22 mg/dL (= or < 0.5); Protein, Total 5.4 g/dL (5.8-8.1)
[2018-06-29] MEDS ORDERED: Famotidine/PF 20 mg/2ml Vial SLOW IVP SCH (09:00)
[2018-06-29] MEDS ORDERED: Calcium Carbonate 500 MG ChewTAB PO PRN (09:44)
[2018-06-29] MEDS ORDERED: Nitroglycerin 0.4 MG TAB (25 Tab Bottle) PO PRN (09:44)
[2018-06-29] MEDS ORDERED: Meropenem 1 GM in Sodium Chloride 0.9% 100 ML IVPB SCH (10:00)
--- NOTE | 2018-06-29 10:52 | HP ---
PRIMARY CARE DOCTOR: Dr. Ganga Mcdowell. CHIEF COMPLAINT: Generalized weakness. HISTORY OF PRESENT ILLNESS: The patient is an 87-year-old male with dementia, cholestatic jaundice in March of this year, status post ERCP and stent placement, presented to the emergency room with above complaints. He was sent to the emergency room from his primary care physician's office. In April of this year, he underwent a repeat ERCP with removal of the stent. History obtained from the family at the bedside. Over the last 2 to 3 days, the patient has been feeling generally weak and fatigued. The family also noticed fever. He has not been eating well over the last 2 to 3 days. No nausea, vomiting, abdominal pain, or diarrhea reported. He had a normal bowel movement 2 days ago. No cough, shortness of breath, wheezing, or sore throat. He was slow to respond with increased somnolence; however, no focal deficit reported. There was no headache or neck stiffness reported by the family. No dysuria, hematuria, or urgency reported by the family. He has chronic incontinence and wears diapers. He has been eating and drinking well prior to this. He has a history of borderline diabetes in the past. In the emergency room, initial vital signs showed temperature of 102 with respirations of 16, pulse rate of 67, blood pressure of 122/100, and O2 saturation 95% on room air. His EKG showed sinus rhythm with incomplete right bundle branch block and left ventricular hypertrophy. Abdominal ultrasound was negative for gallbladder distention or calculi. Common bile duct measured 7 mm. A chest x- ray was negative for infiltrate. He received vancomycin and Zosyn in the emergency room. PAST MEDICAL HISTORY: 1. Alzheimer dementia. 2. Cholestatic jaundice in March of this year secondary to choledocholithiasis status post ERCP. PAST SURGICAL HISTORY: 1. ERCP. 2. Bilateral cataract surgery. 3. Right elbow surgery. 4. Prostatectomy. ALLERGIES: THE PATIENT IS ALLERGIC TO SULFA. CURRENT HOME MEDICATIONS: 1. Amlodipine 2.5 mg daily as needed. 2. Aricept 20 mg at bedtime. 3. Melatonin 5 mg at bedtime. 4. Multivitamin 1 tablet daily. 5. Simvastatin 20 mg at bedtime. 6. Terazosin 10 mg at bedtime. FAMILY HISTORY: Negative for heart disease. SOCIAL HISTORY: The patient currently lives at home with his family. He is do not resuscitate, which was confirmed with the DPOA, daughter at the bedside. REVIEW OF SYSTEMS: Cannot be reliably obtained from the patient due to current cognitive status. PHYSICAL EXAMINATION: VITAL SIGNS: As discussed above. GENERAL: An 87-year-old male, in no apparent distress. HEENT: Head, atraumatic and normocephalic. Sclerae anicteric. Moist mucous membranes. No oral lesion. Posterior pharynx not visualized. NECK: Supple. No JVD. No neck stiffness. LUNGS: Clear to auscultation bilaterally. No wheezing, rales, or rhonchi. No accessory muscle use. HEART: S1 and S2 present. Regular rate and rhythm. No murmurs, rubs, or gallops appreciated. ABDOMEN: Soft and nontender. Bowel sounds present. No rebound or guarding. No masses palpable. EXTREMITIES: No edema or calf tenderness. NEUROLOGY: The patient is spontaneously moving all of his extremities. He also follows commands to some extent. PSYCHIATRY: As discussed above. He is at baseline per family. SKIN: As discussed above. LYMPH NODES: No palpable lymph nodes in the neck. PERIPHERAL VASCULAR: Radial pulses palpable bilaterally. MUSCULOSKELETAL: No joint swelling or tenderness. LABORATORY FINDINGS: WBC 11.6 with hemoglobin 12.9, hematocrit 39.6, and platelet of 111. PT/INR were normal at last admission. Sodium 136, potassium 3.3, chloride 104, bicarb 23, BUN 35, and creatinine 1.39. Creatinine last night was 1.4. Hemoglobin A1c 11. Total bilirubin 1.5 with AST of 51, ALT 132, and albumin 3.1 with total protein 5.4. CRP 17.2. Troponin of 0.038. Lipase was normal. Urinalysis was negative for wbc or bacteria. Blood culture 1/2 shows gram-negative sofiya. Chest x-ray and EKG by my review as discussed above. Right upper quadrant ultrasound as discussed above. IMPRESSION: 1. Sepsis with acute organ dysfunction with gram-negative sofiya bacteremia. Etiology unclear. Probably Acute Cholangitis. 2. Acute kidney injury on chronic kidney disease stage 2 secondary to sepsis. 3. Uncontrolled diabetes mellitus type 2. His hemoglobin A1c is 11. In the past, his hemoglobin A1c has been normal. 4. Abnormal LFTs probably secondary to sepsis. 5. Elevated inflammatory markers. 6. Moderate protein-calorie malnutrition. 7. Elevated troponin secondary to demand ischemia. 8. Hypokalemia. 9. Alzheimer dementia. 10. Hypertension. 11. Chronic insomnia. 12. Hyperlipidemia, on statins. 13. Benign prostatic hypertrophy. 14. Sulfa allergy. 15. Choledocholithiasis requiring endoscopic retrograde cholangiopancreatography in March of this year. 16. Diverticulosis. 17. Left renal cyst. 18. Moderate hiatal hernia. PLAN: The patient will be monitored on the telemetry unit. Gastroenterology and Infectious Disease will be consulted. We will start him on meropenem. He received vancomycin and Zosyn in the emergency room. We will replace potassium. We will avoid statins due to abnormal LFTs. We will resume other home medications. Insulin sliding scale. We will consult dietitian. We will monitor labs on a daily basis. We will hold antihypertensives. Physical Therapy/Occupational Therapy evaluation. CT scan of the abdomen in March of this year showed 1.7 cm cyst in the left kidney. We will get a renal ultrasound. Plan of care was discussed with the patient and the family in detail, they stated understanding. Job ID: [id number] MTDD
[2018-06-29] MEDS: NS 0.9% w/ 20 MEQ KCL 1,000 ML/1,000 ML BAG IV SCH ×3 (11:22→21:05)
[2018-06-29] MEDS: MEROPENEM 1 GM/50 ML 1 GM in Premix Bag 1 BAG IVPB SCH ×2 (11:22→23:11)
--- NOTE | 2018-06-29 12:26 | ULT ---
BILATERAL RENAL ULTRASOUND COMPLETE: History: 87-year-old male with history of acute kidney insufficiency. FINDINGS: Right kidney 10.2 x 5.4 x 5.0 cm. Left kidney 10.1 x 5.7 x 4.7 cm with a small 1.4 cm cyst. There is no renal hydronephrosis. No perinephric process. The bladder is demonstrated and is somewhat indented by the prostate gland. There are bilateral ureteral jets. IMPRESSION: No renal hydronephrosis. Small left renal cyst. Bilateral ureteral jets. Prostate gland indents the f [place] of the bladder and projects into the bladder. POS: [facility]
[2018-06-29] MEDS ORDERED: Vancomycin HCl 750 MG in Sodium Chloride 0.9% 250 ML 250 ML IVPB SCH (13:00)
[2018-06-29] MEDS: Insulin Regular 300 UNITS/3 ML VIAL SC PRN ×2 (13:24→18:05)
[2018-06-29] MEDS: Acetaminophen 325 MG TAB PO PRN (16:59)
[2018-06-29] MEDS ORDERED: Non-Formulary Item 1 EACH (Melatonin [Melatonin] 5 MG) PO SCH (21:00)
[2018-06-29] MEDS: Multivit, Therapeutic 1 TAB PO SCH (21:04)
[2018-06-29] MEDS: Terazosin HCl 5 MG CAP PO SCH (21:04)
[2018-06-29] MEDS: Melatonin 3 MG TAB PO SCH (21:04)
--- NOTE | 2018-06-29 22:04 | CON ---
DATE OF CONSULTATION: REASON FOR CONSULTATION: Fever. HISTORY OF PRESENT ILLNESS: An 87-year-old who has a history of dementia and recent episode of cholestasis with intrahepatic biliary dilatation. The initial presentation was prompted by the family noticing that he had developed jaundice. His bilirubin was 7.0 and alkaline phosphatase of 504. The patient had stool studies, which were negative. The patient had an ERCP and 3 intraoperative fluoroscopic images of right upper quadrant were submitted and showed opacification of the common duct, intrahepatic bile duct mildly dilated during the exam. There was a stent within the common duct with distal portion of the stent in the expected location. Two sets of blood cultures obtained in March, but those were negative. The abdomen and pelvis CT done in March demonstrated a central intrahepatic biliary dilatation and subcentimeter hypodensities in the liver. The gallbladder was distended. After discharge, the patient did well. The stent was eventually removed by Dr. Isabella ashley in April and then 2 or 3 days before admission, he developed fatigue, weakness, and developed fever and chills as well. No headaches. No visual symptoms, cough or sputum production. No dyspnea. No chest pain. No genitourinary symptoms. He was brought to the emergency room by his family. On arrival, he had a temperature of 102 with a heart rate of 67, BP 120/100. The patient had abdominal ultrasound, which demonstrated mild prominence of common duct, although it was smaller than before. The gallbladder appeared normal. A chest x-ray was performed and it showed no evidence of acute cardiopulmonary process. Initial findings also included a white cell count 11,000, hemoglobin 13, platelets 105,000, 87% neutrophils, creatinine 1.39. The transaminases have decreased to 51 and 132. The alkaline phosphatase decreased from 173 to 149. Urinalysis was not particularly remarkable except for glycosuria. PAST MEDICAL HISTORY: Includes dementia, probably Alzheimer's; recent episode of cholestasis, which was ascribed to stones in the common bile duct. Those were removed via ERCP and papillotomy. The patient had a stent placed for a few weeks, which has been removed. PAST SURGICAL HISTORY: Includes prostatectomy. ALLERGIES: TO SULFA DRUGS. FAMILY HISTORY: Negative. SOCIAL HISTORY: Never smoker. PHYSICAL EXAMINATION: VITAL SIGNS: T-max 100.7, now 98.3; blood pressure 117/57; pulse 64; respirations 18. SKIN: Exam is not remarkable. HEENT: The patient has no lymphadenopathy. Ocular movements conjugate. Oral cavity is not remarkable. NECK: Supple. No jugular venous distention. LUNGS: Symmetric air entry. S1, S2. Regular rate. No S3 or S4. ABDOMEN: Soft, not distended or tender. No ascites. No bladder distention. EXTREMITIES: No joint inflammatory activity. Pulses 1+ in dorsalis pedis. He moves his extremities equally. NEUROLOGIC: He knows his name. He did not know where he was. He could not tell me the date and certainly could not give me any personal account due to memory issues. MICROBIOLOGY,: We have one set of blood cultures out of two with Klebsiella pneumoniae. ASSESSMENT: 1. Dementia, possibly secondary to Alzheimer's. 2. Biliary tract complications with recent obstruction, which required endoscopic retrograde cholangiopancreatography placement. The patient had the stones and required a stent placement then at that time. The stent was recently removed. Now, he presents with some element of abnormal liver function test results, although the bilirubin is lower than what it had been in March and the direct bilirubin is also markedly lower than March. All the other enzymes have shown a trend towards improvement and normalization since the endoscopic retrograde cholangiopancreatography in March. 3. Klebsiella pneumoniae bacteremia associated with fever. DISCUSSION: Differential diagnosis includes residual stones that remained, recurrence of cholangitis due to the recent stent and papillotomy and the possibility of liver abscess from the previous cholangitis are considered. Other sites of involvement including lungs, spine, heart, other intraabdominal areas appears to be less likely. We will obtain a CT of abdomen and pelvis to rule out liver abscess with contrast and antimicrobial therapy will be continued until we have susceptibility results. Discontinue vancomycin. Hopefully eventual transition to oral quinolone for discharge planning. Since the liver enzymes are improving, it does not appear that he is going to need a repeat ERCP at this point in time. Job ID: [id number]
[2018-06-30] MEDS ORDERED: Vancomycin HCl 1.5 GM in Sodium Chloride 0.9% 250 ML 300 ML IVPB SCH (01:00)
[2018-06-30] MEDS ORDERED: Vancomycin HCl 1 GM in Premix Bag 1 BAG IVPB SCH (01:00)
[2018-06-30] MEDS: Acetaminophen 325 MG TAB PO PRN (02:28)
[2018-06-30 06:38] LABS: INR-International Normal Ratio 1.2; PTT 32.9 SEC (22.9-36.1); Prothrombin Time 14.8 SEC (12.0-14.7)
[2018-06-30 06:43] LABS: #Lymphocytes 0.7 thou/uL (1.20-3.40); #Monocytes 0.7 thou/uL (0.11-0.59); #Neutrophils 5.6 thou/uL (1.40-6.50); %Basophils 0.1 % (0.0-1.0); %Eosinophils 0.4 % (0.0-10.0); %Lymphocytes 9.6 % (21.0-51.0); %Monocytes 9.3 % (0.0-10.0); %Neutrophils 80.7 % (42.0-75.0); Hemoglobin 11.2 g/dL (14.0-18.0); Mean Corpuscular HGB CONC 33.8 g/dL (32.0-36.0); Mean Corpuscular Hemoglobin 30.6 pg (27.0-31.0); Mean Corpuscular Volume 90.6 fL (78.0-98.0); Mean Platelet Volume 9.6 fL (7.4-10.4); Platelet Count 68 thou/uL (130-400); RBC Distribution Width 11.5 % (11.5-14.5); Red Blood Cell (RBC) Count 3.67 mill/uL (4.70-6.10); White Blood Cell (WBC) Count 6.9 thou/uL (4.8-10.8)
[2018-06-30 06:52] LABS: ALT (SGPT) 89 U/L (8-55); AST (SGOT) 37 U/L (5-34); Albumin 2.8 g/dL (3.4-4.8); Alkaline Phosphatase 123 U/L (40-150); Anion Gap 11 mmol/L (10-20); BUN (Urea Nitrogen) 27 mg/dL (8.4-25.7); Calc. Creatinine Clearance 50 mL/min (70-130); Calcium 8.2 mg/dL (7.8-10.44); Carbon Dioxide 23 mmol/L (23-31); Chloride 108 mmol/L (98-107); Estimated GFR-MDRD 63; Globulin 2.4 g/dL (2.4-3.5); Glucose 136 mg/dL (83-110); Magnesium 1.7 mg/dL (1.6-2.6); Potassium 3.6 mmol/L (3.5-5.1); Protein, Total 5.2 g/dL (5.8-8.1); Sodium 138 mmol/L (136-145)
--- NOTE | 2018-06-30 07:26 | CON ---
DATE OF CONSULTATION: 06/29/2018 REASON FOR REFERRAL: Fever and abnormal LFTs. HISTORY OF PRESENT ILLNESS: Mr. Alvin Geller is a very pleasant 87-year-old male hospitalized yesterday with fever about 100 degree Fahrenheit and with certain other symptoms. The patient has dementia. The patient was seen in the room along with the patient's daughters. The patient has been eating very well until Thursday and he is ambulating very well. Towards Thursday evening, he started not felling well and has fever of 102 degrees Fahrenheit. Denies abdominal pain, no nausea, no vomiting. He came to see his primary care doctor yesterday and Dr. Mcdowell had some routine blood tests. He was found to have elevated leukocyte esterase. The LFTs shows bilirubin of 1.5, AST and ALT slightly high. The patient has no abdominal pain whatsoever. No nausea or vomiting. His fever resolved and today he is afebrile. He is started on on broad-spectrum antibiotic therapy. Blood culture is growing gram-negative organisms. The patient was seen in the room along with the patient's family. The patient denies any abdominal pain. He has no nausea or vomiting. The patient was hospitalized here with painless jaundice in March 2018. He had an ERCP at that time with removal of multiple common bile duct stones. He had a stent placement done. Subsequently, his liver function tests came back to normal. The patient had a repeat ERCP in April 2018 with removal of the biliary stent. At that time, contrast injection did not show any filling defect. Also the bile duct was swept 3-4 times with a biliary balloon. The patient done well until this weekend when he started to have some fever. Otherwise, he had no known symptoms. His bili was as high as 4.9 in March of 2018 and came back to normal after the ERCP. Now, the bilirubin is 1 to 1.5 with mildly elevated transaminases. He had an abdominal sonogram, which revealed no intrahepatic bile duct dilatation. The CBD measures 7 mm. Otherwise, the sonogram was normal, is normal without any history. MEDICAL ILLNESSES: 1. Mild dementia. 2. Painless jaundice in March 2018, status post ERCP and bile duct stent placement with removal of common bile duct stone. PAST SURGICAL HISTORY: 1. ERCP x2, April 2018. 2. Bilateral cataract surgery. 3. Right elbow surgery. 4. Prostatectomy. ALLERGIES: SULFA. SOCIAL HISTORY: The patient does not smoke or drink alcohol. MEDICATION LIST: Reviewed. REVIEW OF SYSTEMS: Systems review is not relevant as the patient denies any specific symptoms like chest pain, abdominal pain, nausea, vomiting, dysuria or hematuria. PHYSICAL EXAMINATION: GENERAL: He is afebrile. He appears very comfortable. He is awake and does respond to questions. However, he has dementia and cannot give a detailed history. He is mildly icteric. VITAL SIGNS: His vital signs today are stable. Temperature 98.3 degrees Fahrenheit, pulse is 66, blood pressure is 113/69. NECK: Supple. CARDIOVASCULAR: First and second sounds are heard. LUNGS: Clear to auscultation. ABDOMEN: Abdomen is soft. Abdomen is nondistended. Abdomen is nontender. There is no pulmonary mass. EXTREMITIES: No edema. LABORATORY DATA: On admission, WBC 11,000, hemoglobin 13.2, hematocrit 38.9. Today, WBC is 9100, platelet count is 84,000 today, polymorphs 87, no bandemia, lymphocytes 4, and monocytes 7. His chem-7 shows elevated BUN of 35, creatinine is 1.39, and potassium is 3.3. LFTs, bilirubin 1.5, AST is 51, ALT is 132, alkaline phosphatase is 149. In March 2018, his bilirubin is as high as 4.9 and transaminases is remarkably elevated. His blood culture is growing gram-negative organisms. CLINICAL IMPRESSION: 1. This is an 87-year-old male with fever, abnormal LFTs, and the findings suggestive of cholangitis. He underwent an ERCP in April 2018, which revealed no filling defects. The pancreatic duct could not be visualized. The patient's family opted not to have any endosonography. Following the ERCP and removal of common bile duct stones, his LFTs normalized. Now that is going back again. His abdominal sonogram shows non dilated common bile duct. 2. Dementia. Overall impression based on the history and abnormal LFTs and positive blood culture, he appears to have most likely cholangitis until proven otherwise. His abdomen is really benign and nontender. RECOMMENDATION: 1. Continue broad-spectrum antibiotic therapy. 2. Follow up LFTs. If the LFTs normalize, I believe we can get . However if the LFTs remain elevated or it keeps going up, consider a repeat ERCP. Job ID: [id number]
[2018-06-30] MEDS ORDERED: Sodium Chloride 0.9% 500 ML IV SCH (09:15)
--- NOTE | 2018-06-30 11:07 | PDOC.PN ---
- Subjective Encounter Start Date: 06/30/18 Encounter Start Time: 08:45 Patient seen and examined for Sepsis. Feels better. Wants to go home. Was confused last night. Had some Rt flank pain last night - resolved. No fever/ chills/N/V. - Objective Resuscitation Status - Order Detail: 06/29/18 08:48 Resuscitation Status Routine Resuscitation Status: DNAR: NO Resuscitation Discussed with: confirmed with daughter IGOR MORAES Reviewed: Yes Vital Signs & Weight: Vital Signs (12 hours) Temp Pulse Resp BP BP Pulse Ox 06/30/18 08:00 97.7 F 56 L 16 141/65 H 97 06/30/18 04:00 98.8 F 62 18 132/60 97 06/30/18 00:00 98.2 F Weight Weight 165 lb 12.8 oz I&O: 06/29/18 06/30/18 07/01/18 06:59 06:59 06:59 Intake Total 400 4505 Output Total 350 Balance 400 4155 Result Diagrams: 06/30/18 06:09 06/30/18 06:09 Additional Labs: Accuchecks 06/30/18 06/29/18 06/29/18 06:23 20:58 17:09 POC Glucose 135 H 268 H 249 H 06/29/18 11:46 POC Glucose 263 H Laboratory Tests 06/29/18 06/30/18 05:45 06:09 Total Bilirubin 1.5 H 1.0 AST 51 H 37 H ALT 132 H 89 H Serum Total Protein 5.2 L Albumin 2.8 L EKG Reviewed by me: Yes (Tele SR) Phys Exam - Physical Examination Constitutional: NAD Neck: supple Respiratory: no wheezing, no rales, no rhonchi, clear to auscultation bilateral Cardiovascular: RRR, no rub no heaves/pulsations Gastrointestinal: soft, non-tender, no distention, positive bowel sounds Musculoskeletal: no edema, pulses present Neurological: non-focal, normal sensation, moves all 4 limbs Psychiatric: normal affect Deviation from normal: alert/awake Skin: no rash Dx/Plan - Plan DVT proph w/SCDs 1. Sepsis with acute organ dysfunction/Klebsiella bacteremia. ?Acute Cholangitis. 2. Acute kidney injury on chronic kidney disease stage 2 secondary to sepsis. improving 3. Uncontrolled diabetes mellitus type 2. on sliding scale 4. Abnormal LFTs probably secondary to sepsis. improving 5. Elevated inflammatory markers. 6. Moderate protein-calorie malnutrition. 7. Elevated troponin secondary to demand ischemia. 8. Hypokalemia. 9. Alzheimer dementia. 10. Hypertension. 11. Chronic insomnia. 12. Hyperlipidemia, on statins. 13. Benign prostatic hypertrophy. 14. Sulfa allergy. 15. Choledocholithiasis requiring endoscopic retrograde cholangiopancreatography in March of this year. 16. Diverticulosis. 17. Left renal cyst. 18. Moderate hiatal hernia. PLAN: CT abd to r/o Liver abscess Cont Vancomycin and Meropenem Monitor Vancomycin level Transfer to medical AM labs Cont sliding scale Resume Aricept at low dose HS Cont other meds as below Review of Systems - Review of Systems Respiratory: negative: Cough, Dry, Shortness of Breath, Hemoptysis, SOB with Excertion, Pleuritic Pain, Sputum, Wheezing Cardiovascular: negative: chest pain, palpitations, orthopnea, paroxysmal nocturnal dyspnea, edema, light headedness, other Gastrointestinal: negative: Nausea, Vomiting, Abdominal Pain, Diarrhea, Constipation, Melena, Hematochezia, Other - Medications/Allergies Allergies/Adverse Reactions: Allergies Allergy/AdvReac Type Severity Reaction Status Date / Time Sulfa (Sulfonamide Allergy Verified 04/27/18 13:26 Antibiotics) Medications: Current Medications Acetaminophen (Tylenol) 650 mg PO Q4H PRN PRN Reason: Headache/Fever/Mild Pain (1-3) Last Admin: 06/30/18 02:28 Dose: 650 mg Bisacodyl (Dulcolax) 10 mg PO DAILYPRN PRN PRN Reason: Constipation Calcium Carbonate (Tums) 1,000 mg PO Q4H PRN PRN Reason: Heartburn or Indigestion Dextrose/Water (Dextrose 50%) 25 gm SLOW IVP PRN PRN PRN Reason: Hypoglycemia Donepezil HCl (Aricept) 10 mg PO HS TERRENCE Glucagon (Glucagon) 1 mg IM PRN PRN PRN Reason: Hypoglycemia Dextrose/Water (D5w) 1,000 mls @ 0 mls/hr IV .Q0M PRN PRN Reason: Hypoglycemia Potassium Chloride/Sodium Chloride (Ns 0.9% W/ 20 Meq Kcl) 1,000 ml in 1,000 mls @ 125 mls/hr IV .Q8H TERRENCE Last Admin: 06/29/18 21:05 Dose: 1,000 mls Meropenem 1 gm/ Device 50 mls @ 100 mls/hr IVPB Q12H [facility] Last Admin: 06/29/18 23:11 Dose: 50 mls Vancomycin HCl 1 gm/ Device 200 mls @ 200 mls/hr IVPB 0100 [facility] Last Admin: 06/30/18 01:52 Dose: 200 mls Insulin Human Lispro (Humalog) 0 units SC .BEDTIME SLIDING SC PRN PRN Reason: Bedtime Correctional Scale Last Admin: 06/29/18 21:05 Dose: 3 unit Insulin Human Regular (Humulin R) 0 units SC .MILD SLIDING SCALE PRN PRN Reason: Mild Correctional Scale Last Admin: 06/29/18 18:05 Dose: 3 unit Melatonin (Melatonin) 3 mg PO [facility] Last Admin: 06/29/18 21:04 Dose: 3 mg Miscellaneous Medication (Pharmacy To Dose) 1 each IVPB PRN PRN PRN Reason: Pharmacy to dose Miscellaneous Medication (Pharmacy To Dose) 1 each IVPB [facility] Multivitamins (Theragran) 1 tab PO [facility] Last Admin: 06/29/18 21:04 Dose: 1 tab Nitroglycerin (Nitrostat) 0.4 mg PO Q5MIN PRN PRN Reason: Chest Pain Ondansetron HCl (Zofran) 4 mg IVP Q6H PRN PRN Reason: Nausea/Vomiting Senna/Docusate Sodium (Senokot S) 2 tab PO BIDPRN PRN PRN Reason: Constipation Sodium Chloride (Flush - Normal Saline) 10 ml IVF Q12HR [facility] Last Admin: 06/30/18 09:34 Dose: 10 ml Sodium Chloride (Flush - Normal Saline) 10 ml IVF PRN PRN PRN Reason: Saline Flush Terazosin HCl (Hytrin) 5 mg PO [facility] Last Admin: 06/29/18 21:04 Dose: 5 mg
[2018-06-30] MEDS: MEROPENEM 1 GM/50 ML 1 GM in Premix Bag 1 BAG IVPB SCH ×2 (12:16→23:06)
[2018-06-30] MEDS: NS 0.9% w/ 20 MEQ KCL 1,000 ML/1,000 ML BAG IV SCH ×3 (12:17→21:19)
--- NOTE | 2018-06-30 12:54 | EKG ---
Test Reason : Blood Pressure : / mmHG Vent. Rate : 076 BPM Atrial Rate : 076 BPM P-R Int : 162 ms QRS Dur : 134 ms QT Int : 448 ms P-R-T Axes : -13 -29 077 degrees QTc Int : 504 ms Normal sinus rhythm Right bundle branch block Voltage criteria for left ventricular hypertrophy Confirmed by FELA MARIE [id number]), advertising editor BRITT RANGEL ([id number]) on 06/30/2018 12:53:52 PM Referred By: Confirmed By:FELA MARIE
--- NOTE | 2018-06-30 13:52 | CT ---
CT OF THE ABDOMEN AND PELVIS WITH AND WITHOUT CONTRAST: Date: 06-30-18 Comparison: CT abdomen and pelvis, 03-22-18. History: Right upper quadrant/abdominal pain, bacteremia, cholangitis. Technique: Axial CT imaging is obtained at 5 mm intervals through the abdomen with oral contrast, wit h and without IV contrast. Axial CT imaging through the pelvis was obtained with IV and oral contrast . Coronal reformatted imaging of the chest and abdomen obtained. FINDINGS: The imaged lung bases demonstrate trace bilateral pleural effusions, right larger than left. No free intraperitoneal air or fluid. The gallbladder wall is mildly prominent and there is mucosal enhancement of the gallbladder, new. Th is could signify a degree of inflammatory change on the basis of cholecystitis in the proper clinical setting. There is new gas seen within the gallbladder. There is also new gas in the common bile duct. There ar e branching gas lucencies overlying the right and left lobe of the liver, new as well, likely on the basis of biliary air. This gas is new when compared to 03-22-18 CT examination. The patient has underg one interval ERCPs performed 03-24-18 and 04-28-18, which included placement of biliary drain. Thus, t his gas could be on the basis of a gas forming infection on the basis of cholangitis or could simply have been introduced during prior instrumentation. Thus, clinical correlation is essential. A vague area of nonspecific hypodensity is noted in the region of the liver dome on Image 13, too sma ll to characterize. Small probable stable cyst noted in right lobe of the liver anteriorly on Image 2 6. There is no evidence for a drainable hepatic abscess. The spleen, pancreas, and adrenal glands are stable. Bilateral adrenal glands are thickened, right gr eater than left, stable when compared to the prior examination. Neither kidney appears obstructed. There is a nonspecific exophytic lesion emanating from the midpole of the left kidney with post contrast Hounsfield units of approximately 44 and pre contrast Hounsfie ld units of approximately 32. However, small size limits detailed assessment as this lesion measures approximately 1.2 cm. Thus, follow up imaging is advised. The prostate gland is prominent, a stable finding. There is no evidence for bowel obstruction. The appendix is unremarkable. A moderate sized hiatal hernia is present, stable. The portal vein appears patent as does the superior mesenteric vein. No portal venous gas is apprecia rick on this exam. There is no lymphadenopathy seen in the abdomen or pelvis. Review of the osseous structures demonstrate no worrisome lytic or blastic bone lesion IMPRESSION: 1. There is new gas in the intrahepatic biliary tree and gallbladder as detailed above. This could si mply be on the basis of recent instrumentation. Gas forming infection on the basis of cholangitis can not be excluded. The gallbladder wall is mildly prominent and demonstrates enhancement as do the intr ahepatic biliary structures in the region of the portahepatis which can also be seen on the basis of an inflammatory process such as cholangitis. No drainable abscess is seen at this time. Clinical alexandra elation is essential. 2. No evidence for free intraperitoneal air, bowel, inflammatory change or bowel obstruction. 3. There is an exophytic and nonspecific lesion emanating from the midpole of the left kidney measure s 1.2 cm. There is questionable mild enhancement, and thus, a solid mass cannot be fully excluded. Ho wever, its small size limits detailed assessment and the degree of enhancement appears minimal. Thus, follow up imaging is advised. Recommend repeat imaging of this lesion in 6 months. Code T POS: [id number]
[2018-06-30] MEDS ORDERED: Donepezil HCl 10 MG TAB PO SCH (21:00)
[2018-06-30] MEDS ORDERED: Cyanocobalamin (Vitamin B-12) 1,000 MCG TAB PO SCH (21:00)
[2018-06-30] MEDS ORDERED: Folic Acid 1 MG TAB PO SCH (21:00)
[2018-06-30] MEDS: Multivit, Therapeutic 1 TAB PO SCH (21:15)
[2018-06-30] MEDS: Melatonin 3 MG TAB PO SCH (21:15)
[2018-06-30] MEDS: Terazosin HCl 5 MG CAP PO SCH (21:16)
[2018-07-01 00:36] LABS: Vancomycin, Trough 6.3 ug/mL
[2018-07-01] MEDS ORDERED: Vancomycin HCl 1 GM in Premix Bag 1 BAG IVPB SCH ×2 (01:15→13:00)
--- NOTE | 2018-07-01 04:54 | PRG ---
DATE OF SERVICE: 06/30/2018 SUBJECTIVE: This is an 87-year-old [place] male admitted for fever, abnormal LFTs and findings suggestive of cholangitis. The patient has no abdominal pain. No nausea or vomiting. He is tolerating diet. He was sent for abdomen CAT scan. The abdomen CAT scan shows air in the biliary tree, it is most likely from previous instrumentation. So unlikely that he has gas-forming organisms in the biliary tract. He is not septic. He is tolerating diet. He really has multiple complaints. OBJECTIVE: VITAL SIGNS: Afebrile. His pulse is 59 and blood pressure is 155/66. CARDIOVASCULAR SYSTEM: Within normal limits. LUNGS: Within normal limits. ABDOMEN: Soft. No organomegaly. No tenderness. No mass. LABORATORY DATA: The lab data from today, CBC; WBC down to 6900, hemoglobin 11.2, and hematocrit 33.2. Chem panel shows a BUN dropping to 27, creatinine is 1.10, glucose 135, bilirubin is 1 mg%, AST dropping down to 37, ALT 89, alkaline phosphatase 120. CLINICAL IMPRESSION: An 87-year-old male with fever and abnormal LFTs, findings suggestive of cholangitis. The patient had large amount of air in the biliary tree, most likely from previous instrumentation. He had an ERCP and stent removal in April 2008. There is no pancreatic mass seen on CAT scan. RECOMMENDATIONS: 1. Continue antibiotics. 2. Diet as tolerated. 3. Possibly if he remains afebrile, consider discharge home on p.o. antibiotics. Job ID: [id number]
[2018-07-01 09:13] LABS: Chloride 108 mmol/L (98-107); Potassium 3.5 mmol/L (3.5-5.1); Sodium 137 mmol/L (136-145)
[2018-07-01 09:14] LABS: ALT (SGPT) 71 U/L (8-55); AST (SGOT) 34 U/L (5-34); Albumin 2.8 g/dL (3.4-4.8); Alkaline Phosphatase 120 U/L (40-150); Anion Gap 12 mmol/L (10-20); BUN (Urea Nitrogen) 16 mg/dL (8.4-25.7); Bilirubin, Total 0.7 mg/dL (0.2-1.2); Calc. Creatinine Clearance 71 mL/min (70-130); Calcium 8.1 mg/dL (7.8-10.44); Carbon Dioxide 21 mmol/L (23-31); Estimated GFR-MDRD Greater than 90; Globulin 2.4 g/dL (2.4-3.5); Glucose 140 mg/dL (83-110); Magnesium 1.6 mg/dL (1.6-2.6); Protein, Total 5.2 g/dL (5.8-8.1)
[2018-07-01 09:17] LABS: #Eosinphils 0.1 thou/uL (0.0-0.7); #Lymphocytes 0.9 thou/uL (1.20-3.40); #Monocytes 0.9 thou/uL (0.11-0.59); #Neutrophils 5.4 thou/uL (1.40-6.50); %Basophils 0.3 % (0.0-1.0); %Eosinophils 0.7 % (0.0-10.0); %Lymphocytes 12.9 % (21.0-51.0); %Monocytes 12.8 % (0.0-10.0); %Neutrophils 73.3 % (42.0-75.0); Hemoglobin 11.5 g/dL (14.0-18.0); Mean Corpuscular HGB CONC 34.2 g/dL (32.0-36.0); Mean Corpuscular Hemoglobin 30.7 pg (27.0-31.0); Mean Corpuscular Volume 89.8 fL (78.0-98.0); Mean Platelet Volume 10.7 fL (7.4-10.4); Platelet Count 79 thou/uL (130-400); RBC Distribution Width 11.6 % (11.5-14.5); Red Blood Cell (RBC) Count 3.74 mill/uL (4.70-6.10); White Blood Cell (WBC) Count 7.3 thou/uL (4.8-10.8)
[2018-07-01] MEDS: NS 0.9% w/ 20 MEQ KCL 1,000 ML/1,000 ML BAG IV SCH (10:01)
[2018-07-01] MEDS: MEROPENEM 1 GM/50 ML 1 GM in Premix Bag 1 BAG IVPB SCH (10:04)
[2018-07-01 11:40] VITALS: BP 148/66; TEMP 98.5
--- NOTE | 2018-07-01 14:16 | PRG ---
DATE OF SERVICE: 07/01/2018 SUBJECTIVE: This is an 87-year-old Latin-[place] male, hospitalized with fever, poor appetite, and generalized malaise. He was found to have Klebsiella pneumoniae in the blood culture. The patient's liver function test is slightly elevated. It was felt that the patient has cholangitis. The patient had an ERCP stent placement and subsequent removal of common bile duct stone in April 2018. At that time, the cholangiogram showed no filling defects. The patient has no abdominal pain. No nausea or vomiting. He is presently mostly with some fever and mildly elevated liver function test. Abdominal sonogram and CAT scan showed no pathology, some air in the biliary tree. Air in the biliary tree could be mostly from the previous instrumentation. On antibiotics, he is actually feeling better. He has remained afebrile. OBJECTIVE: VITAL SIGNS: Temperature 98.5 degrees Fahrenheit, pulse is 50, blood pressure 148/66. CARDIOVASCULAR: First and second sounds are heard. LUNGS: Clear to auscultation. ABDOMEN: Soft. No organomegaly. No tenderness. No masses. LABORATORY DATA: Liver function test, bilirubin dropped to 0.7. AST 34, ALT 71. RECOMMENDATIONS: The patient can be discharged on p.o. antibiotics. I had a long talk with the patient's daughter and son. I have explained to them that he should be fine with . However he should call me back if there is any fever or any jaundice. If he develops any of these symptoms, I might consider doing ERCP again. Job ID: [id number]
--- NOTE | 2018-07-02 11:30 | DIS ---
DATE OF ADMISSION: 06/28/2018 DATE OF DISCHARGE: 07/01/2018 DISCHARGE DISPOSITION: Home. FOLLOWUP: 1. Follow up with primary care physician, Dr. Ganga Mcdowell in 1 week. 2. Follow up with Infectious Disease, Dr. Sena in 2 to 3 weeks. 3. Follow up with Gastroenterology in 2 to 3 weeks. The patient was seen and examined on the day of discharge. Denies any new complaints. No chest pain, shortness of breath, or palpitations. Mentation back to baseline. BRIEF HOSPITAL COURSE: The patient is an 87-year-old male with dementia, cholestatic jaundice in March of this year, requiring ERCP and stent placement, presented to the hospital with generalized weakness. Please refer to the history and physical for further details. The patient was admitted to the hospital with a diagnosis of sepsis with acute organ dysfunction. He was found to have Klebsiella pneumoniae bacteremia. CT scan of the abdomen and pelvis was negative for liver abscess. It showed some enhancement along the biliary structures. Renal ultrasound showed small left renal cyst. He was evaluated by Gastroenterology as well as Infectious Disease. His WBC count on the day of discharge is 7.3, compared to 11.0 on admission. He also had acute kidney injury with creatinine 1.5 on admission and 0.78 at discharge. His bilirubin is back to normal today at 0.7 from 1.5. He will be discharged home with ciprofloxacin per Infectious Disease recommendation. FINAL DIAGNOSES: 1. Sepsis with acute organ dysfunction secondary to acute cholangitis. 2. Klebsiella bacteremia. 3. Acute kidney injury on chronic kidney disease stage 2. 4. Diabetes mellitus, type 2. 5. Abnormal LFTs secondary to cholangitis, improving. 6. Elevated inflammatory markers. 7. Moderate protein-calorie malnutrition. 8. Elevated troponin secondary to demand ischemia. 9. Hypokalemia. 10. Alzheimer dementia. 11. Hypertension. 12. Chronic insomnia. 13. Hyperlipidemia. 14. Benign prostatic hypertrophy. 15. Choledocholithiasis, requiring ERCP in March of this year. 16. Diverticulosis. 17. Left renal cyst. 18. Moderate hiatal hernia. 19. Sulfa allergy. PLAN: Plan of care was discussed with the patient and the family at the bedside. They stated understanding. Job ID: [id number]
== END 2018-07-01 13:51 | disposition home or self-care (01) | DRG 872 ==
LOC: ERS 21:30 → 2NO 23:20 → T4-A 06-30 15:27
PROVIDERS: ADMIT Internal Medicine; ATTEND Internal Medicine
DX: A41.9 Sepsis, unspecified organism (principal); N17.9 Acute kidney failure, unspecified; E44.0 Moderate protein-calorie malnutrition; I24.8 Other forms of acute ischemic heart disease; F51.04 Psychophysiologic insomnia; E87.6 Hypokalemia; G30.9 Alzheimer's disease, unspecified; F02.80 Dementia in other diseases classified elsewhere, unspecified severity, without behavioral disturbance, psychotic disturbance, mood disturbance, and anxiety; E78.5 Hyperlipidemia, unspecified; N40.0 Benign prostatic hyperplasia without lower urinary tract symptoms; E11.65 Type 2 diabetes mellitus with hyperglycemia; K57.90 Diverticulosis of intestine, part unspecified, without perforation or abscess without bleeding; N28.1 Cyst of kidney, acquired; K44.9 Diaphragmatic hernia without obstruction or gangrene; Z68.25 Body mass index [BMI] 25.0-25.9, adult; B96.1 Klebsiella pneumoniae [K. pneumoniae] as the cause of diseases classified elsewhere; K80.50 Calculus of bile duct without cholangitis or cholecystitis without obstruction
CPT/HCPCS: 36415; 36416; 51701; 71045; 74178; 76705; 76770; 80053; 80069; 80202; 81003; 81015; 82550; 82553; 83036; 83605; 83690; 83735; 84484; 85025; 85610; 85730; 86140; 87040; 87077; 87086; 87149; 87186; 93005; 94760; 96361; 96365; 96375; G8978-GP-CJ; G8979-GP-CJ; G8980-GP-CJ; G8987-GO-CK; G8988-GO-CJ; J2185; J2543; J3370; J7050; S0028